=== PATIENT | male | born 1995 | race Two or more races ===

== ENCOUNTER 2021-03-02 14:58 | Emergency (ER) | payer SELFPAY ==
[~2021-03-02] VITALS: Ht 172.7 cm; Wt 64.0 kg
[2021-03-02 15:23] VITALS: BP 116/84
[2021-03-02] MEDS ORDERED: BISM262T15 PO (15:29)
[2021-03-02] MEDS ORDERED: ACET-2708 PO (15:29)
[2021-03-02 17:03] LABS: BASOPHILS % 0.2 % (0.0-2.0); EOSINOPHILS % 0.6 % (0.0-5.0); HEMATOCRIT. 46.1 % (42.0-52.0); HEMOGLOBIN. 15.7 g/dL (14.0-18.0); LYMPHOCYTES % 33.6 % (20.0-50.0); MEAN PLATELET VOLUME 8.4 fl (7.4-10.4); NEUTROPHILS % 59.6 % (40.0-76.0); PLATELET 248 x1000/uL (130-400); RED BLOOD CELL COUNT 5.24 mill/uL (4.7-6.1); RED CELL DISTRIBUTION WIDTH 12.6 % (11.6-14.6)
[2021-03-02 17:09] LABS: CHLORIDE 108 mEq/L (98-107)
[2021-03-02] MEDS ORDERED: FAMOTIDINE 20MG TABLET PO ONE (17:30)
[2021-03-02] MEDS ORDERED: MAGNESIUM/ALUMINUM HYDROXIDE/SIMETHICONE 30ML UDC PO STA (17:30)
[2021-03-02] MEDS ORDERED: FAMO40TA70 MT (18:30)
== END 2021-03-02 18:48 | disposition home or self-care (01) ==
LOC: ER 14:58
DX: R10.13 Epigastric pain (principal)
CPT/HCPCS: 36415; 71045; 80053; 85025; 93005; 99285